=== PATIENT | male | born 1990 ===

== ENCOUNTER 2022-07-01 18:45 | Emergency (ER) | payer OTHER ==
[~2022-07-01] VITALS: Ht 182.9 cm; Wt 125.0 kg
[2022-07-01 19:32] VITALS: BP 156/101
--- NOTE | 2022-07-01 20:37 | NUR ---
Ultrasound at bedside.
[2022-07-01] MEDS ORDERED: HYDROcodone/acetaminophen 5mg/325mg tablet PO ONE (20:55)
== END 2022-07-01 21:10 | disposition home or self-care (01) ==
LOC: ER 18:46
DX: N50.811 Right testicular pain (principal); Z88.1 Allergy status to other antibiotic agents
CPT/HCPCS: 76870; 99284